=== PATIENT | male | born 1985 | race Caucasian/White ===

== ENCOUNTER 2019-03-11 17:59 | Emergency (ER) | payer OTHER ==
[~2019-03-11] VITALS: Ht 175.3 cm; Wt 108.9 kg
[2019-03-11 18:20] VITALS: BP 138/78
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
== END 2019-03-11 19:15 | disposition home or self-care (01) ==
LOC: ER 17:59
DX: S01.411A Laceration without foreign body of right cheek and temporomandibular area, initial encounter (principal); Z88.5 Allergy status to narcotic agent; W26.1XXA Contact with sword or dagger, initial encounter; Y93.89 Activity, other specified; Y92.89 Other specified places as the place of occurrence of the external cause; Y99.8 Other external cause status
CPT/HCPCS: 12011; 99283